=== PATIENT | female | born 1960 | race Caucasian/White ===

== ENCOUNTER → 2017-01-20 | Outpatient (CLI) | payer OTHER ==
[~2017-01-20] MED LIST: /ADVA50050; /ADVA50050 IN; /CELE20CA; /CELE20CA OR; /ROPI1TA OR; /TIOT18INH; /TIOT18INH INH; /ZOLP6ER; /ZOLP6ER OR; ACET65TA; ADVAIR; ADVAIR INH; ALBU17IN2; ALBUTEROL INH; AMOX500C OR; ASPI81TA83 OR; BENZ1TAB; BIOTINE OR; BUDE150T; BUDEPRION; BUSP10TA2 OR; CALC600T10; CALCTAB22 OR; CLAR5CHW; COLA100C2; COLA100C2 OR; DAILTAB OR; ESTR0.5T; ESTR1TAB OR; ESTR5TDPCH; FERR325T OR; FISH1000 OR; FLEXERIL OR; GLUC1000; HYZAAR OR; IBUP800T; INSULANT; INSULANT SC; KAPIDEX; KAPIDEX OR; LASI40TA OR; LOPR50TA; LORATADINE OR; LYRI300C OR; MAGN250T OR; MAXA10TA17 OR; MAXA5TAB; METO25TA2; METO25TA2 OR; NICO7DIS4 TD; NOVOLOG INSULIN SC; NOVOLOG100 MG/ML; PERC5TAB8; PREG50CA; SIMV40TA2 OR; SKEL800T5 OR; TOPI50TA OR; TRAM50TA2; VICO5TAB OR; VIST25CA OR; VIT D 2000 OR; VITA100T OR; VITAMIN D50000 UNT; WELL100T OR; ZOCO40TA; [UNRECOGNIZED DRUG - OTHER]; [UNRECOGNIZED DRUG - OTHER] PO; cinnamon PO; ducolax; hyzaar; multivitamin; pennsaid TD; pennsaid TOP; savella OR; savella PO
[2017-01-20 08:35] LABS: MEAN CORPUSCULAR HEMOGLOBIN 29.7 pg (27.0-33.0); MEAN CORPUSCULAR HGB CONC 33.3 g/dl (32.0-36.5); MEAN CORPUSCULAR VOLUME 89.1 fl (80.0-96.0); RED CELL DISTRIBUTION WIDTH 12.6 % (11.5-14.5); WHITE BLOOD COUNT 5.8 K/mm3 (4.0-10.0)
[2017-01-20 09:01] LABS: ALBUMIN 3.3 GM/DL (3.2-5.2); ALBUMIN/GLOBULIN RATIO 0.87 (1.00-1.93); BILIRUBIN,TOTAL 0.3 MG/DL (0.2-1.0); CALCIUM LEVEL 8.8 MG/DL (8.5-10.1); CREATININE FOR GFR 1.38 MG/DL (0.55-1.02); POTASSIUM SERUM 4.3 MEQ/L (3.5-5.1); TOTAL PROTEIN 7.1 GM/DL (6.4-8.2)
== END ==
LOC: M LAB 07:48
PROVIDERS: ATTEND Registered Nurse Community Health
DX: Z86.73 Personal history of transient ischemic attack (TIA), and cerebral infarction without residual deficits (principal); E11.8 Type 2 diabetes mellitus with unspecified complications; R26.9 Unspecified abnormalities of gait and mobility; Z79.4 Long term (current) use of insulin; M79.7 Fibromyalgia

== ENCOUNTER → 2017-11-01 | Outpatient (CLI) | payer OTHER ==
[2017-11-01 07:56] LABS: BASO # 0.1 10^3/uL (0.0-0.2); BASO % 1.1 % (0.0-1.0); EOS # 0.2 10^3/uL (0.0-0.50); EOS % 3.7 % (0.0-3.0); HEMATOCRIT 46.9 % (36.0-47.0); HEMOGLOBIN 15.9 g/dl (12.0-15.5); IMMATURE GRANULOCYTE % 0.5 % (0-3.0); LYMPH # 1.9 10^3/uL (1.5-4.5); LYMPH % 29.7 % (24.0-44.0); MEAN CORPUSCULAR HGB CONC 33.9 g/dl (32.0-36.5); MEAN CORPUSCULAR VOLUME 85.6 fl (80.0-96.0); MONO # 0.5 10^3/uL (0.0-0.8); MONO % 7.5 % (0.0-5.0); NEUTROPHILS # 3.8 10^3/uL (1.8-7.7); NEUTROPHILS % 57.5 % (36.0-66.0); PLATELET COUNT, AUTOMATED 200 10^3/uL (150-450); RED BLOOD COUNT 5.48 10^6/uL (4.00-5.40); RED CELL DISTRIBUTION WIDTH 12.3 % (11.5-14.5); WHITE BLOOD COUNT 6.5 10^3/uL (4.0-10.0)
[2017-11-01 08:21] LABS: ALBUMIN 3.7 GM/DL (3.2-5.2); ALBUMIN/GLOBULIN RATIO 0.93 (1.00-1.93); ALKALINE PHOSPHATASE 97 U/L (45-117); ALT/SGPT 131 U/L (12-78); ANION GAP 11 MEQ/L (8-16); AST/SGOT 77 U/L (7-37); BILIRUBIN,TOTAL 0.3 MG/DL (0.2-1.0); BLOOD UREA NITROGEN 29 MG/DL (7-18); CARBON DIOXIDE LEVEL 22 MEQ/L (21-32); CHLORIDE LEVEL 105 MEQ/L (98-107); CHOLESTEROL LEVEL 227 MG/DL (<200); CREATININE FOR GFR 1.46 MG/DL (0.55-1.30); GLOMERULAR FILTRATION RATE 39.3 (>51); HDL CHOLESTEROL 51 MG/DL (>40); LDL CHOLESTEROL 153.2 MG/DL (<100); NON-HDL-C 176 MG/DL; POTASSIUM SERUM 4.7 MEQ/L (3.5-5.1); SODIUM LEVEL 138 MEQ/L (136-145); TOTAL PROTEIN 7.7 GM/DL (6.4-8.2); TRIGLYCERIDES LEVEL 114 MG/DL (<150)
[2017-11-01 08:34] LABS: GLUCOSE, FASTING 442 MG/DL (70-100)
[2017-11-01 09:41] LABS: ESTIMATED AVERAGE GLUCOSE 212 MG/DL (60-110)
== END ==
LOC: M LAB 07:24
DX: R60.0 Localized edema (principal); E11.9 Type 2 diabetes mellitus without complications; K59.01 Slow transit constipation
CPT/HCPCS: 74018

== ENCOUNTER 2018-01-22 14:54 | Emergency (ER) | payer OTHER ==
[2018-01-22 15:36] LABS: BASO % 0.4 % (0.0-1.0); EOS # 0.1 10^3/uL (0.0-0.50); EOS % 0.9 % (0.0-3.0); HEMATOCRIT 47.5 % (36.0-47.0); HEMOGLOBIN 15.7 g/dl (12.0-15.5); IMMATURE GRANULOCYTE % 0.3 % (0-3.0); LYMPH # 2.1 10^3/uL (1.5-4.5); LYMPH % 19.3 % (24.0-44.0); MEAN CORPUSCULAR HEMOGLOBIN 28.5 pg (27.0-33.0); MEAN CORPUSCULAR HGB CONC 33.1 g/dl (32.0-36.5); MEAN CORPUSCULAR VOLUME 86.4 fl (80.0-96.0); MONO # 0.8 10^3/uL (0.0-0.8); MONO % 7.7 % (0.0-5.0); NEUTROPHILS # 7.6 10^3/uL (1.8-7.7); NEUTROPHILS % 71.4 % (36.0-66.0); PLATELET COUNT, AUTOMATED 214 10^3/uL (150-450); RED CELL DISTRIBUTION WIDTH 12.3 % (11.5-14.5); WHITE BLOOD COUNT 10.7 10^3/uL (4.0-10.0)
[2018-01-22] MEDS ORDERED: GASTROGRAFIN SOLUTION 30ML (Q9963) As Ordered (15:48)
[2018-01-22] MEDS: GASTROGRAFIN SOLUTION 30ML (Q9963) PO ×2 (15:55→16:30)
[2018-01-22 15:56] LABS: ANION GAP 10 MEQ/L (8-16); BLOOD UREA NITROGEN 27 MG/DL (7-18); CARBON DIOXIDE LEVEL 24 MEQ/L (21-32); CHLORIDE LEVEL 109 MEQ/L (98-107); CREATININE FOR GFR 1.36 MG/DL (0.55-1.30); GLOMERULAR FILTRATION RATE 42.5 (>51); GLUCOSE, FASTING 307 MG/DL (70-100); SODIUM LEVEL 143 MEQ/L (136-145)
[2018-01-22] MEDS: metroNIDAZOLE (FLAGYL) 500 MG TAB PO (21:12)
[2018-01-22] MEDS: GABAPENTIN 300 MG CAP PO (21:12)
[2018-01-22] MEDS: NS 1,000 ML IV (21:15)
== END 2018-01-22 22:33 | disposition home or self-care (01) ==
LOC: M ED 14:54
DX: A04.72 Enterocolitis due to Clostridium difficile, not specified as recurrent (principal)
CPT/HCPCS: 76775

== ENCOUNTER 2018-07-05 10:46 | Inpatient (IN) | payer OTHER ==
[~2018-07-05] VITALS: Ht 172.7 cm; Wt 155.0 kg
[~2018-07-05 10:46] MED LIST changes: -ADME100I SC; -BASA100I SC; -COLA100C5 PO; -EXCETAB80 PO; -HYDR-3363 PO; -INSUH10VL SC; -LASI20TA3 PO; -LISI-542 PO; -ROPI2TAB PO; -TOPI50TA9 PO; -TOUJ1.2I SC; -VENTAER INH
[2018-07-05] MEDS ORDERED: ADME100I SC (10:58)
[2018-07-05 11:08] LABS: BASO # 0.1 10^3/uL (0.0-0.2); BASO % 0.7 % (0.0-1.0); EOS # 0.2 10^3/uL (0.0-0.50); EOS % 2.1 % (0.0-3.0); HEMATOCRIT 48.5 % (36.0-47.0); HEMOGLOBIN 16.2 g/dl (12.0-15.5); LYMPH # 2.6 10^3/uL (1.5-4.5); LYMPH % 33.4 % (24.0-44.0); MEAN CORPUSCULAR HEMOGLOBIN 28.6 pg (27.0-33.0); MEAN CORPUSCULAR HGB CONC 33.4 g/dl (32.0-36.5); MEAN CORPUSCULAR VOLUME 85.5 fl (80.0-96.0); MONO # 0.9 10^3/uL (0.0-0.8); MONO % 11.1 % (0.0-5.0); NEUTROPHILS % 52.4 % (36.0-66.0); PLATELET COUNT, AUTOMATED 225 10^3/uL (150-450); RED BLOOD COUNT 5.67 10^6/uL (4.00-5.40); WHITE BLOOD COUNT 7.6 10^3/uL (4.0-10.0)
[2018-07-05] MEDS ORDERED: NS 1,000 ML IV ONE (11:30)
[2018-07-05 11:49] LABS: BLOOD UREA NITROGEN 36 MG/DL (7-18); CALCIUM LEVEL 9.8 MG/DL (8.5-10.1); CARBON DIOXIDE LEVEL 22 MEQ/L (21-32); CHLORIDE LEVEL 107 MEQ/L (98-107); CPK CREATINE PHOSPHOKINASE 120 U/L (26-192); CREATININE FOR GFR 1.88 MG/DL (0.55-1.30); GLOMERULAR FILTRATION RATE 29.3 (>51); GLUCOSE, FASTING 214 MG/DL (70-100); MAGNESIUM LEVEL 2.3 MG/DL (1.8-2.4); MB/CK RELATIVE INDEX 1.67 (< OR =4); POTASSIUM SERUM 4.5 MEQ/L (3.5-5.1); SODIUM LEVEL 140 MEQ/L (136-145); TROPONIN I < 0.02 NG/ML (< 0.10)
[2018-07-05] MEDS ORDERED: DILUENT IV ONE (13:15)
[2018-07-05] MEDS ORDERED: cefTRIAXone SOD 2 GM in D5W MINI-BAG PLUS 50 ML IV ONE (13:15)
[2018-07-05] MEDS ORDERED: NS IV ONE (13:15)
[2018-07-05] MEDS ORDERED: ALBUTEROL 90 MCG/ACT 8GM HFA INHALER INH PRN (14:30)
[2018-07-05] MEDS ORDERED: LASI20TA3 PO (14:36)
[2018-07-05] MEDS ORDERED: TOPI50TA9 PO (14:36)
[2018-07-05] MEDS ORDERED: COLA100C5 PO (14:36)
[2018-07-05] MEDS ORDERED: VENTAER INH (14:36)
[2018-07-05] MEDS ORDERED: HYDR-3363 PO (14:36)
[2018-07-05] MEDS ORDERED: LISI-542 PO (14:36)
[2018-07-05] MEDS ORDERED: EXCETAB80 PO (14:36)
[2018-07-05] MEDS ORDERED: ROPI2TAB PO (14:36)
--- NOTE | 2018-07-05 14:59 | REP ---
CHEST, SINGLE VIEW: There is no evidence of acute infiltrate. No pleural effusion is seen. The heart is normal in size. The mediastinal silhouette is unremarkable. The visualized osseous structures are intact. IMPRESSION: No acute pulmonary disease. Electronically Signed by Killian Velazquez MD 07/05/2018 08:11 P
[2018-07-05] MEDS: CYCLOBENZAPRINE 10 MG TAB PO SCH ×2 (16:05→20:07)
[2018-07-05] MEDS: GABAPENTIN 300 MG CAP PO SCH ×2 (16:05→20:07)
--- NOTE | 2018-07-05 16:33 | REP ---
CT ABDOMEN AND PELVIS WITHOUT CONTRAST: CT abdomen and pelvis performed without oral or IV contrast. Sagittal and coronal reconstruction images are performed. Comparison made with several prior studies, the most recent of which is 01/22/2018. Visualized lung bases are clear. The liver, gallbladder, spleen, adrenals and pancreas are grossly unremarkable. Patient has had a prior right nephrectomy with metallic clips in the right renal fossa. No mass is seen in that region. The left kidney demonstrates a cyst measuring 1.9 cm in diameter laterally. There is no left renal or ureteral calculus and no hydroureteronephrosis. No bladder calculus is seen. Urinary bladder is not well distended and not optimally evaluated. There is mild to moderate atherosclerotic calcification of the abdominal aorta without aneurysm. There is no adenopathy. There is no free air or free fluid. No bowel wall thickening is seen. There is no evidence of appendicitis. There is a small umbilical hernia containing fat. No pelvic mass is seen. The patient appears to have had a hysterectomy. There are mild degenerative changes of the spine. IMPRESSION: Patient is status post right nephrectomy. No left renal, ureteral or bladder calculus and no evidence of left hydroureteronephrosis. Left renal cyst noted. Small umbilical hernia contains fat. No evidence of appendicitis, free air or free fluid. Electronically Signed by Killian Velazquez MD 07/05/2018 08:17 P
--- NOTE | 2018-07-05 17:15 | ECGEPIP ---
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
--- NOTE | 2018-07-05 17:49 | HPE ---
DATE OF ADMISSION: 07/05/2018 A 58-year-old female with past medical history of renal cell carcinoma, status post right nephrectomy, history of hepatitis C, diabetes, hypertension, hyperlipidemia, morbid obesity, irritable bowel syndrome, chronic obstructive pulmonary disease (COPD), who presents to the emergency room from Dr. Kelley's office after a followup visit for hypertension and dizziness. The patient apparently was explaining to Dr. Kelley that she has been feeling dizzy for quite some time and in the last few days, she has been having similar symptoms to the urinary tract infection (UTI) she had back in this past May 2018 and was treated successfully. Her symptoms included dysuria and urgency. She has no nausea or vomiting. She has been eating well and drinking fluids properly. It has not affected her appetite. No subjective feeling of fever, aches or chills. Upon taking her vital signs in the office, she was found to be hypotensive, systolic in the 80s, so she was brought to the emergency room (ER) for evaluation. In the ER, she was confirmed to be systolic in the 80s, given IV bolus and started on fluids and she has received her third bag of IV fluids and now her blood pressure is systolic 100. She does not have any complaints at this time of any dizziness, chest pain, shortness of breath or palpitations, though she was profoundly orthostatic upon arrival to the ER. She was also given 2 grams of Rocephin IV for a positive urinalysis done in Dr. Kelley's office and a regular urinalysis (UA) has been sent out for culture and sensitivity as well. She will be admitted for further management. PAST MEDICAL HISTORY: 1. Hypertension. 2. Diabetes. 3. Hyperlipidemia. 4. Morbid obesity. 5. Hepatitis C. 6. Irritable bowel syndrome. 7. Win-nrmyob-lhpxvlkeu chronic obstructive pulmonary disease (COPD). 8. Diabetic neuropathy. ALLERGIES: She has drug allergies to MACROLIDES. She does not have any drug allergies to penicillin or penicillin cross reactors even though it is documented. FAMILY HISTORY: Noncontributory. SOCIAL HISTORY: The patient denies tobacco, alcohol or illicit drugs. MEDICATIONS: She takes at home are as follows: - Fioricet one tablet orally twice daily as needed - Admelog 40 units subcutaneous Wednesdays and Mondays - Ventolin two puffs inhaled four times a day as needed - atorvastatin 40 mg orally daily - cyclobenzaprine 10 mg orally three times a day - Colace 100 mg orally twice daily - Lasix 20 mg orally daily - gabapentin 300 mg orally three times a day - hydroxyzine 75 mg orally at bedtime - lisinopril 5 mg orally daily - loratadine 10 mg orally daily - omeprazole 40 mg orally daily - ropinirole 2 mg orally at bedtime - topiramate 50 mg orally twice daily REVIEW OF SYSTEMS: Negative for all 10 major systems except for what is mentioned in the history of present illness (HPI). VITAL SIGNS: Blood pressure is 82/44, heart rate is 96 and regular, respiratory rate is 16, temperature is 97.3, oxygen saturation is 95% on room air. Head is normocephalic, atraumatic. NECK: Supple with no jugular venous distention (JVD). LUNGS: Clear to auscultation. S1, S2 audible. No murmurs appreciated. ABDOMEN: Soft. Positive bowel sounds. No pedal edema. SKIN: Intact. NEUROLOGIC: The patient awake, alert, and oriented times three. LABORATORY DATA: WBC 7.6, hemoglobin 16.2, hematocrit is 48.5, platelets are 225,000. Sodium 140, potassium 4.5, chloride 107, CO2 22, anion gap is 11, BUN 36, creatinine 1.88, baseline is 1.3, fasting glucose is 214, lactic acid is 2.8, troponin is less than 0.02, TSH 1.3, magnesium is 2.3, CK is 120. IMPRESSION: 1. Orthostatic hypotension. 2. Acute kidney injury (KENYA). 3. Urinary tract infection (UTI). PLAN: The patient will be admitted to medical/surgical floor. We will continue aggressive and judicious IV fluids. She clearly is behind and will also follow the final urine culture and sensitivity. Continue IV Rocephin 1 gram daily. Her acute kidney injury (KENYA) is likely secondary to prerenal azotemia. We will monitor blood urea nitrogen (BUN) and creatinine trends in the morning. For now due to her KENYA, I am going to hold her lisinopril and her Lasix and we can surely resume in the morning or the day after once her KENYA has resolved. We will continue her care in the medical/surgical floor.
[2018-07-05] MEDS: NS 1,000 ML IV SCH ×2 (20:00→21:48)
[2018-07-05] MEDS ORDERED: INSUH10VL SC (20:04)
[2018-07-05] MEDS: hydrOXYzine 25 MG TAB PO SCH (20:08)
[2018-07-05] MEDS: DOCUSATE SODIUM 100 MG CAP PO SCH (20:08)
[2018-07-05] MEDS: TOPIRAMATE (TopAMAX) 25 MG TAB PO SCH (20:08)
[2018-07-05] MEDS ORDERED: TOUJ1.2I SC (20:27)
[2018-07-05] MEDS ORDERED: GLUCOSE 4 GM CHEW TABLET PO PRN (20:45)
[2018-07-05] MEDS ORDERED: DEXTROSE 50% 50 ML SYRINGE IV PRN (20:45)
[2018-07-05] MEDS ORDERED: GLUCAGON FOR INJ 1 MG VIAL (J1610) SC PRN (20:45)
[2018-07-05] MEDS ORDERED: HumaLOG INSULIN (NovoLOG) PER UNIT SC SCH (21:00)
[2018-07-05] MEDS: LEVEMIR (INSULIN DETEMIR) 1 UNITS/0.01ML SC SCH (21:03)
[2018-07-05] MEDS: rOPINIRole 1MG TAB PO SCH (22:05)
[2018-07-06] MEDS ORDERED: ACETAMINOPHEN TAB 650MG DOSE (2X325MG) GT PRN (01:15)
[2018-07-06] MEDS ORDERED: traMADol 50 MG TAB PO ONE (05:15)
[2018-07-06] MEDS: NS 1,000 ML IV SCH ×2 (05:47→13:40)
[2018-07-06 05:53] LABS: BASO % 0.5 % (0.0-1.0); EOS # 0.3 10^3/uL (0.0-0.50); EOS % 4.8 % (0.0-3.0); HEMATOCRIT 40.8 % (36.0-47.0); LYMPH # 2.4 10^3/uL (1.5-4.5); LYMPH % 39.2 % (24.0-44.0); MEAN CORPUSCULAR HEMOGLOBIN 28.5 pg (27.0-33.0); MEAN CORPUSCULAR HGB CONC 32.6 g/dl (32.0-36.5); MEAN CORPUSCULAR VOLUME 87.4 fl (80.0-96.0); MONO # 0.6 10^3/uL (0.0-0.8); MONO % 9.5 % (0.0-5.0); NEUTROPHILS # 2.7 10^3/uL (1.8-7.7); NEUTROPHILS % 45.7 % (36.0-66.0); PLATELET COUNT, AUTOMATED 165 10^3/uL (150-450); RED BLOOD COUNT 4.67 10^6/uL (4.00-5.40)
[2018-07-06 05:55] LABS: HEMOGLOBIN 13.3 g/dl (12.0-15.5)
[2018-07-06 06:19] LABS: CALCIUM LEVEL 7.6 MG/DL (8.5-10.1); CREATININE FOR GFR 1.51 MG/DL (0.55-1.30); GLOMERULAR FILTRATION RATE 37.7 (>51); POTASSIUM SERUM 4.2 MEQ/L (3.5-5.1)
[2018-07-06] MEDS: LEVEMIR (INSULIN DETEMIR) 1 UNITS/0.01ML SC SCH (08:59)
[2018-07-06] MEDS: HumaLOG INSULIN (NovoLOG) PER UNIT SC SCH ×3 (08:59→18:16)
[2018-07-06] MEDS: OMEPRAZOLE 20 MG CAP PO SCH (09:00)
[2018-07-06] MEDS: CYCLOBENZAPRINE 10 MG TAB PO SCH ×3 (09:00→22:04)
[2018-07-06] MEDS: ATORVASTATIN 20 MG TAB PO SCH (09:01)
[2018-07-06] MEDS: TOPIRAMATE (TopAMAX) 25 MG TAB PO SCH ×2 (09:01→22:05)
[2018-07-06] MEDS: GABAPENTIN 300 MG CAP PO SCH ×3 (09:02→22:05)
[2018-07-06] MEDS: DOCUSATE SODIUM 100 MG CAP PO SCH ×2 (09:02→22:04)
[2018-07-06] MEDS: LORATADINE 10 MG TAB PO SCH (09:03)
[2018-07-06] MEDS ORDERED: dexameTHASONE 20 MG/5 ML VIAL (J1100) IV ONE (12:15)
[2018-07-06] MEDS ORDERED: diphenhydrAMINE INJ 50MG/ML VIAL (J1200) IV ONE (12:15)
[2018-07-06] MEDS ORDERED: ACETAMINOPHEN 500 MG TAB PO ONE (12:15)
[2018-07-06] MEDS ORDERED: METOCLOPRAMIDE INJ 10MG/2ML VIAL (J2765) IV ONE (12:15)
[2018-07-06] MEDS ORDERED: cefTRIAXone SOD 1 GM in D5W MINI-BAG PLUS 50 ML IV SCH (14:00)
[2018-07-06] MEDS ORDERED: EXCEDRIN MIGRAINE TABLET PO PRN (14:30)
[2018-07-06] MEDS ORDERED: DEXTROSE 50% 50 ML SYRINGE IV PRN (20:15)
[2018-07-06] MEDS ORDERED: GLUCAGON FOR INJ 1 MG VIAL (J1610) SC PRN (20:15)
[2018-07-06] MEDS ORDERED: GLUCOSE 4 GM CHEW TABLET PO PRN (20:15)
[2018-07-06 21:00] VITALS: BP 182/86
[2018-07-06] MEDS ORDERED: LEVEMIR (INSULIN DETEMIR) 1 UNITS/0.01ML SC SCH (21:00)
[2018-07-06] MEDS ORDERED: METOPROLOL TART 25 MG TABLET PO ONE (21:45)
[2018-07-06 22:05] VITALS: BP 182/86
[2018-07-06] MEDS: hydrOXYzine 25 MG TAB PO SCH (22:05)
[2018-07-06] MEDS: rOPINIRole 1MG TAB PO SCH (22:05)
[2018-07-06 23:20] VITALS: BP 146/60
[2018-07-07] MEDS: HumaLOG INSULIN (NovoLOG) PER UNIT SC SCH ×5 (00:29→12:00)
[2018-07-07 06:00] VITALS: BP 139/65
[2018-07-07] MEDS: GABAPENTIN 300 MG CAP PO SCH (08:45)
[2018-07-07] MEDS: OMEPRAZOLE 20 MG CAP PO SCH (08:45)
[2018-07-07] MEDS: ATORVASTATIN 20 MG TAB PO SCH (08:45)
[2018-07-07] MEDS: TOPIRAMATE (TopAMAX) 25 MG TAB PO SCH (08:45)
[2018-07-07] MEDS: DOCUSATE SODIUM 100 MG CAP PO SCH (08:45)
[2018-07-07] MEDS: LORATADINE 10 MG TAB PO SCH (08:45)
[2018-07-07] MEDS: CYCLOBENZAPRINE 10 MG TAB PO SCH (08:45)
[2018-07-07] MEDS ORDERED: LEVEMIR (INSULIN DETEMIR) 1 UNITS/0.01ML SC SCH (09:00)
[2018-07-07] MEDS ORDERED: LEVEMIR (INSULIN DETEMIR) 1 UNITS/0.01ML SC ONE (10:45)
[2018-07-07] MEDS ORDERED: BASA100I SC (12:15)
--- NOTE | 2018-07-07 13:49 | IPNPDOC ---
Text Note Date of Service The patient was seen on 07/06/18. NOTE SUBJECTIVE: Feels better this am . Still a little dizzy and light headed but Bp has improved. Complains of headache since last night. Does have history of migraines. VITAL SIGNS: As below. GENERAL: morbidly obese, lying comfortably in bed in no acute distress HEENT: Head is normocephalic, atraumatic. NECK: Supple with no jugular venous distention (JVD). LUNGS: Clear to auscultation. Distant breath sounds. CVS: S1, S2 audible. No murmurs appreciated. No rub or gallop ABDOMEN: Soft. Positive bowel sounds. Obese EXTREMITIES: No pedal edema. SKIN: Intact. LABS and RADIOLOGY: Reviewed ASSESSMENT and PLAN: A 58-year-old female with past medical history of renal cell carcinoma, status post right nephrectomy, CKD stage 3, history of hepatitis C, Migraine, diabetes, hypertension, hyperlipidemia, morbid obesity, MED, Fatty liver, Periodic limb movement disorder, irritable bowel syndrome, chronic obstructive pulmonary disease (COPD), who presents to the emergency room from Dr. Kelley's office after a followup visit for hypotension and dizziness. The patient apparently was explaining to Dr. Kelley that she has been feeling dizzy for quite some time and in the last few days, she has been having similar symptoms to the urinary tract infection (UTI) she had back in this past May 2018 and was treated successfully with 10 days of Levofloxacin. Upon taking her vital signs in the office, she was found to be hypotensive, systolic in the 80s, so she was brought to the emergency room (ER) for evaluation. In the ER, she was confirmed to be systolic in the 80s, given IV bolus . She was profoundly orthostatic upon arrival to the ER. She was also given 2 grams of Rocephin IV for a positive urinalysis done in Dr. Kelley's office and a regular urinalysis (UA) has been sent out for culture and sensitivity as well. She will be admitted for further management. Hypotension Due to dehydration from osmotic diuresis as her sugars have been running in 400 to 500 in the past month as she had ran out of her long acting insulin. She said she was always thirsty and drinking fluids. being on diuretics and the increased output made her dehydrated. hold all antihypertensives and diuretics. responded to IVF. Migraine attack will give reglan, benadryl, tylenol and dexamethasone . continue topiramate continue exedrin migraine bid. Possible UTI UA few WBCs await final culture results continue ceftriaxone for now Diabetes with diabetic neuropathy continue levemir and lispro CKD stage 3 creatinine at baseline continue to monitor Morbid obesity with MED may use home CPAP Hyperlipidemia continue statin Restless leg syndrome continue home med COPD No issues. Continue home meds H/o renal cell cancer, s/p right nephrectomy Hepatitis C no issues at present. DVT prophylaxis has been ordered. VS,Fishbone, I+O VS, Fishbone, I+O Laboratory Tests 07/06/18 05:44 Red Blood Count 4.67, Mean Corpuscular Volume 87.4, Mean Corpuscular Hemoglobin 28.5, Mean Corpuscular Hemoglobin Concent 32.6, Red Cell Distribution Width 12.5, Neutrophils (%) (Auto) 45.7, Lymphocytes (%) (Auto) 39.2, Monocytes (%) (Auto) 9.5 H, Eosinophils (%) (Auto) 4.8 H, Basophils (%) (Auto) 0.5, Neutrophils # (Auto) 2.7, Lymphocytes # (Auto) 2.4, Monocytes # (Auto) 0.6, Eosinophils # (Auto) 0.3, Basophils # (Auto) 0.0, Calcium Level 7.6 #L Vital Signs Date Time Temp Pulse Resp B/P (MAP) Pulse Ox O2 Delivery O2 Flow Rate FiO2 07/06/18 13:30 79 18 129/62 (84) 95 Room Air 07/06/18 09:06 96.0 I&O- Last 24 Hours up to 6 AM 07/06/18 05:59 Intake Total 4050 ml Output Total 2725 ml Balance 1325 ml LORETTA DAWN MD Jul 06, 2018 14:25
--- NOTE | 2018-07-07 23:01 | DS.PDOC ---
Discharge Summary General Date of Admission Jul 05, 2018 at 13:48 Date of Discharge 07/07/18 Attending Physician: LORETTA DAWN MD Discharge Summary PROCEDURES PERFORMED DURING STAY: [None]. DISCHARGE DIAGNOSES: Hypotension due to dehydration from high sugars and osmotic diuresis Acute migraine attack No UTI Morbid obesity MED Obesity hypoventilation COPD Diabetes CKD3 Right nephrectomy for renal cell cancer Hepatitis C Hyperlipidemia Restless leg syndrome. COMPLICATIONS/CHIEF COMPLAINT: Orthostatic Hypotension, Uti. HISTORY OF PRESENT ILLNESS:See History and Physical HOSPITAL COURSE: A 58-year-old female with past medical history of renal cell carcinoma, status post right nephrectomy, CKD stage 3, history of hepatitis C, Migraine, diabetes, hypertension, hyperlipidemia, morbid obesity, MED, Fatty liver, Periodic limb movement disorder, irritable bowel syndrome, chronic obstructive pulmonary disease (COPD), who presents to the emergency room from Dr. Kelley's office after a followup visit for hypotension and dizziness. The patient apparently was explaining to Dr. Kelley that she has been feeling dizzy for quite some time and in the last few days, she has been having similar symptoms to the urinary tract infection (UTI) she had back in this past May 2018 and was treated successfully with 10 days of Levofloxacin. Upon taking her vital signs in the office, she was found to be hypotensive, systolic in the 80s, so she was brought to the emergency room (ER) for evaluation. In the ER, she was confirmed to be systolic in the 80s, given IV bolus . She was profoundly orthostatic upon arrival to the ER. She was also given 2 grams of Rocephin IV for a positive urinalysis done in Dr. Kelley's office and a regular urinalysis (UA) has been sent out for culture and sensitivity as well. She will be admitted for further management. Hypotension Due to dehydration from osmotic diuresis as her sugars have been running in 400 to 500 in the past month as she had ran out of her long acting insulin. She said she was always thirsty and drinking fluids. being on diuretics and the increased output made her dehydrated. responded to IVF. Given prescription for new long acting insulin. Migraine attack resolved continue topiramate continue exedrin migraine bid. No UTI Urine culture negative. Diabetes with diabetic neuropathy Continue Basaglar insulin and admelog. Tujeo insulin changed to basglar as it was not covered by insurance. CKD stage 3 creatinine at baseline continue to monitor continue lasix and lisinopril Morbid obesity with MED may use home CPAP Hyperlipidemia continue statin Restless leg syndrome continue home med COPD No issues. Continue home meds H/o renal cell cancer, s/p right nephrectomy Hepatitis C no issues at present. DVT prophylaxis has been ordered. DISCHARGE MEDICATIONS: Please see below. ALLERGIES: Please see below. PHYSICAL EXAMINATION ON DISCHARGE: VITAL SIGNS: Please see below. GENERAL: morbidly obese, lying comfortably in bed in no acute distress HEENT: Head is normocephalic, atraumatic. NECK: Supple with no jugular venous distention (JVD). LUNGS: Clear to auscultation. Distant breath sounds. CVS: S1, S2 audible. No murmurs appreciated. No rub or gallop ABDOMEN: Soft. Positive bowel sounds. Obese EXTREMITIES: No pedal edema. SKIN: Intact. LABORATORY DATA: Please see below. ACTIVITY: [As tolerated]. DIET: Consistent Carb DISPOSITION: 01 Home, Self-Care. DISCHARGE INSTRUCTIONS: Follow up with PMD in 1 week Follow up with Dr Kelley in 1 to [address] Watts. DISCHARGE CONDITION: [Stable]. TIME SPENT ON DISCHARGE: Greater than 30 minutes. Vital Signs/I&Os Vital Signs Date Time Temp Pulse Resp B/P (MAP) Pulse Ox O2 Delivery O2 Flow Rate FiO2 07/07/18 06:00 97.4 70 16 139/65 (89) 96 07/06/18 20:55 Room Air I&O- Last 24 Hours up to 6 AM 07/07/18 06:00 Intake Total 1380 ml Output Total 2825 ml Balance -1445 ml Laboratory Data Labs 24H Laboratory Tests 2 07/07/18 00:05: Bedside Glucose (Misc Panel) 458H 07/07/18 06:05: Bedside Glucose (Misc Panel) 314H 07/07/18 11:43: Bedside Glucose (Misc Panel) 74 FSBS Laboratory Tests Test 07/07/18 00:05 07/07/18 06:05 07/07/18 11:43 Range/Units Bedside Glucose (Misc Panel) 458 314 74 70-105 MG/DL Microbiology Microbiology 07/05/18 Blood Culture - Preliminary, Resulted No Growth after 48 hours. All Specime... 07/05/18 Blood Culture - Preliminary, Resulted No Growth after 48 hours. All Specime... 07/05/18 Urine Culture - Final, Complete Discharge Medications Scheduled (Admelog) 100 Unit/Ml Inj, 40 UNIT SC WM, (Reported) (Basaglar Kwikpen) 100 Unit/Ml Inj, 60 UNIT SC BID Atorvastatin Calcium (Atorvastatin Calcium) 40 Mg Tab, 40 MG PO DAILY, (Reported) Cyclobenzaprine HCl (Cyclobenzaprine HCl) 10 Mg Tab, 10 MG PO TID, (Reported) Docusate Sodium (Colace) 100 Mg Cap, 100 MG PO BID, (Reported) Furosemide (Lasix) 20 Mg Tab, 20 MG PO DAILY, (Reported) Gabapentin (Gabapentin) 300 Mg Cap, 300 MG PO TID, (Reported) Hydroxyzine HCl (Hydroxyzine HCl) 25 Mg Tab, 75 MG PO QHS, (Reported) Lisinopril (Lisinopril) 5 Mg Tab, 5 MG PO DAILY, (Reported) Loratadine (Loratadine) 10 Mg Tab, 10 MG PO DAILY, (Reported) Omeprazole (Omeprazole) 40 Mg Cap, 40 MG PO DAILY, (Reported) Ropinirole Hydrochloride (Ropinirole HCl) 2 Mg Tab, 2 MG PO QHS, (Reported) Topiramate (Topiramate) 50 Mg Tab, 50 MG PO BID, (Reported) Scheduled PRN Acetaminophen/Aspirin/Caffein (Excedrin Migraine 250-250-65 mg) 1 Tab Tab, 1 TAB PO BID PRN for MIGRAINE, (Reported) Albuterol Sulfate (Ventolin Hfa) 108 Mcg/Act Aer, 2 PUFF INH QID PRN for SHORTNESS OF BREATH, (Reported) Allergies Coded Allergies: Erythromycin (Verified Allergy, Unknown, 07/05/18) Penicillins (Verified Adverse Reaction, Intermediate, DIARRHEA, 07/05/18) Penicillins Cross Reactors (Verified Adverse Reaction, Intermediate, DIARRHEA, 07/05/18) LORETTA DAWN MD Jul 07, 2018 23:01
== END 2018-07-07 13:48 | disposition home or self-care (01) | DRG 422 ==
LOC: M ED 10:46 → EDBD 10:46 → M ED INP 13:48 → M MS4PR 07-06 21:02
PROVIDERS: ADMIT Internal Medicine; ATTEND Internal Medicine Nephrology
DX: E86.0 Dehydration (principal); E11.22 Type 2 diabetes mellitus with diabetic chronic kidney disease; E11.40 Type 2 diabetes mellitus with diabetic neuropathy, unspecified; E66.2 Morbid (severe) obesity with alveolar hypoventilation; J44.9 Chronic obstructive pulmonary disease, unspecified; Z68.43 Body mass index [BMI] 50.0-59.9, adult; N18.3 Chronic kidney disease, stage 3 (moderate); I12.9 Hypertensive chronic kidney disease with stage 1 through stage 4 chronic kidney disease, or unspecified chronic kidney disease; E78.5 Hyperlipidemia, unspecified; K58.9 Irritable bowel syndrome, unspecified; Z88.1 Allergy status to other antibiotic agents; Z79.899 Other long term (current) drug therapy; Z85.528 Personal history of other malignant neoplasm of kidney; I95.1 Orthostatic hypotension; G43.709 Chronic migraine without aura, not intractable, without status migrainosus; G25.81 Restless legs syndrome; Z90.5 Acquired absence of kidney

== ENCOUNTER → 2018-07-05 | Outpatient (REF) | payer OTHER ==
[~2018-07-05] MED LIST changes: +ADME100I SC; +ATOR40TA75 PO; +BASA100I SC; +COLA100C5 PO; +CYCL10TA PO; +EXCETAB80 PO; +FLAG500T PO; +GABA-843 PO; +HYDR-3363 PO; +INSUH10VL SC; +LASI20TA3 PO; +LISI-542; +LISI-542 PO; +LORA-243 PO; +MELA3TAB49 PO; +OMEP40CA2 PO; +ROPI2TAB PO; +TOPI50TA9 PO; +TOUJ1.2I; +TOUJ1.2I SC; +VENTAER INH
== END ==
LOC: M LAB REF 12:49
PROVIDERS: ATTEND Internal Medicine Nephrology
DX: N39.0 Urinary tract infection, site not specified (principal)

== ENCOUNTER → 2018-07-26 | Outpatient (REF) | payer OTHER ==
[~2018-07-26] MED LIST changes: +ADME100I SC; +BASA100I SC; +COLA100C5 PO; +EXCETAB80 PO; +HYDR-3363 PO; +INSUH10VL SC; +LASI20TA3 PO; +LISI-542 PO; +ROPI2TAB PO; +TOPI50TA9 PO; +TOUJ1.2I SC; +VENTAER INH
[2018-07-26 14:34] LABS: HEMOGLOBIN A1c 10.5 %
== END ==
LOC: M LAB REF 13:07
PROVIDERS: ATTEND Registered Nurse Community Health
DX: Z09 Encounter for follow-up examination after completed treatment for conditions other than malignant neoplasm (principal); R25.2 Cramp and spasm; N30.01 Acute cystitis with hematuria; E11.9 Type 2 diabetes mellitus without complications

== ENCOUNTER → 2019-03-05 | Outpatient (CLI) | payer OTHER ==
[~2019-03-05] MED LIST changes: -/ADVA50050; -/ADVA50050 IN; -/CELE20CA; -/CELE20CA OR; -/ROPI1TA OR; -/TIOT18INH; -/TIOT18INH INH; +ADVA1AER2; +ADVA1AER2 IN; +CELE1CAP4; +CELE1CAP4 OR; +ESTR0.059; -ESTR5TDPCH; -OMEP40CA2 PO; +OMEP40CA97 PO; +REQU1TAB16 OR; +SPIR1CAP; +SPIR1CAP INH
--- NOTE | 2019-03-06 06:00 | REP ---
Clinical: Bilateral shoulder pain . Technique: Internal rotation, external rotation, and Y view right and left shoulder . Findings: No acute fracture or dislocation. The acromioclavicular and glenohumeral joints are intact. No periarticular calcifications or significant overt degenerative changes are appreciated. Sub acromial space is normal. Surrounding soft tissues are unremarkable. Impression: Normal essentially age-appropriate bilateral shoulder radiographs. Electronically Signed by Clemente Gibbons MD 03/06/2019 05:51 A
== END ==
LOC: M RAD 09:40
PROVIDERS: ATTEND Registered Nurse Community Health
DX: M25.511 Pain in right shoulder (principal); M25.512 Pain in left shoulder

== ENCOUNTER → 2019-04-03 | Outpatient (CLI) | payer OTHER ==
--- NOTE | 2019-04-03 13:40 | REP ---
Two-view chest: 04/03/2019. Indication: Preoperative assessment. Comparison: 11/01/2013. Findings: The lungs are clear. There is no pleural effusion or pneumothorax. Cardiac silhouette is at the upper limits of normal in size. Impression: There is no acute cardiopulmonary process. Electronically Signed by Patrick Astudillo DO 04/03/2019 01:32 P
== END ==
LOC: M RAD 12:48
PROVIDERS: ATTEND Registered Nurse Community Health
DX: Z01.818 Encounter for other preprocedural examination (principal); E66.01 Morbid (severe) obesity due to excess calories; E78.2 Mixed hyperlipidemia; Z68.43 Body mass index [BMI] 50.0-59.9, adult

== ENCOUNTER → 2019-05-10 | Outpatient (CLI) | payer OTHER ==
[2019-05-10 11:06] LABS: HEMATOCRIT 45.2 % (36.0-47.0)
[2019-05-10 11:11] LABS: BASO % 0.5 % (0.0-1.0); EOS # 0.3 10^3/uL (0.0-0.5); EOS % 3.4 % (0.0-3.0); HEMATOCRIT 44.6 % (36.0-47.0); HEMOGLOBIN 14.1 g/dl (12.0-15.5); LYMPH # 2.6 10^3/uL (1.5-5.0); LYMPH % 31.3 % (24.0-44.0); MEAN CORPUSCULAR HEMOGLOBIN 28.4 pg (27.0-33.0); MEAN CORPUSCULAR HGB CONC 31.6 g/dl (32.0-36.5); MEAN CORPUSCULAR VOLUME 89.9 fl (80.0-96.0); MONO # 0.7 10^3/uL (0.0-0.8); MONO % 8.2 % (0.0-5.0); NEUTROPHILS # 4.6 10^3/uL (1.5-8.5); NEUTROPHILS % 56.4 % (36.0-66.0); PLATELET COUNT, AUTOMATED 247 10^3/uL (150-450); RED BLOOD COUNT 4.96 10^6/uL (4.00-5.40); WHITE BLOOD COUNT 8.2 10^3/uL (4.0-10.0)
[2019-05-10 11:46] LABS: ALBUMIN 3.4 GM/DL (3.2-5.2); BILIRUBIN,TOTAL 0.3 MG/DL (0.2-1.0); CREATININE FOR GFR 1.45 MG/DL (0.55-1.30); GLOMERULAR FILTRATION RATE 39.3 (>51); MAGNESIUM LEVEL 2.3 MG/DL (1.8-2.4); PERCENT SATURATION 20.3 % (13.2-45.0); PHOSPHORUS LEVEL 3.7 MG/DL (2.5-4.9); POTASSIUM SERUM 4.5 MEQ/L (3.5-5.1); TOTAL PROTEIN 7.1 GM/DL (6.4-8.2)
[2019-05-10 11:49] LABS: TOTAL 25(OH) VITAMIN D 42.8 NG/ML (30.0-100.0)
== END ==
LOC: M LAB 09:59
PROVIDERS: ATTEND Surgery
DX: K91.2 Postsurgical malabsorption, not elsewhere classified (principal); E55.9 Vitamin D deficiency, unspecified; Z86.39 Personal history of other endocrine, nutritional and metabolic disease; Z98.84 Bariatric surgery status

== ENCOUNTER → 2019-10-11 | Outpatient (REF) | payer OTHER ==
[~2019-10-11] MED LIST changes: +CYCL-707 PO; -CYCL10TA PO; +MAGN400C2 PO; +MULTCAP PO; -ROPI2TAB PO; +ROPI2TAB3 PO; +TRAZ-252 PO; +ULTR5TAB PO; +VITA500079 PO
== END ==
LOC: M LAB REF 16:43
PROVIDERS: ATTEND Nurse Practitioner Family
DX: N39.0 Urinary tract infection, site not specified (principal)

== ENCOUNTER → 2020-02-06 | Outpatient (REF) | payer OTHER | LOC: M LAB REF 16:52 | PROVIDERS: ATTEND Nurse Practitioner Family | DX: N39.0 Urinary tract infection, site not specified (principal) ==

== ENCOUNTER 2020-03-29 21:26 | Emergency (ER) | payer OTHER ==
[2020-03-29] MEDS ORDERED: NS 1,000 ML IV ONE (22:30)
--- NOTE | 2020-03-29 22:30 | REPVR ---
PROCEDURE INFORMATION: Exam: CT Head Without Contrast Exam date and time: 03/29/2020 10:00 PM Age: 60 years old Clinical indication: Injury or trauma; Fall; Blunt trauma (contusions or hematomas); Additional info: Fall with amnesia TECHNIQUE: Imaging protocol: Computed tomography of the head without contrast. Radiation optimization: All CT scans at this facility use at least one of these dose optimization techniques: automated exposure control; mA and/or kV adjustment per patient size (includes targeted exams where dose is matched to clinical indication); or iterative reconstruction. COMPARISON: No relevant prior studies available. FINDINGS: Brain: There is no evidence of intracranial bleed. There is asymmetric increased density along the right side of the cerebellum. This may be normal variation. To exclude any possibility of subtle lesion in this area recommend CT scan with contrast or MRI. Cerebral ventricles: Normal appearing ventricles. Bones/joints: There is no evidence of fracture. Paranasal sinuses: Clear paranasal sinuses. Mastoid air cells: Clear mastoid air cells. Soft tissues: Unremarkable. IMPRESSION: 1. No evidence of fracture. No evidence of bleed. 2. Subtle asymmetry at the right side of the cerebellum probably normal variation. To exclude any possibility of subtle abnormality recommend CT scan with contrast or MRI. Electronically signed by: Jose Bell On 03/29/2020 22:30:37 PM
--- NOTE | 2020-03-29 22:39 | REPVR ---
PROCEDURE INFORMATION: Exam: CT Cervical Spine Without Contrast Exam date and time: 03/29/2020 10:00 PM Age: 60 years old Clinical indication: Injury or trauma; Fall; Blunt trauma; Additional info: Fall with amnesia TECHNIQUE: Imaging protocol: Computed tomography images of the cervical spine without contrast. Radiation optimization: All CT scans at this facility use at least one of these dose optimization techniques: automated exposure control; mA and/or kV adjustment per patient size (includes targeted exams where dose is matched to clinical indication); or iterative reconstruction. COMPARISON: CT Neck with contrast 08/30/2013 9:35 AM FINDINGS: Vertebrae: The cervical vertebra and facet joints appear in alignment. There is no evidence of fracture. The dens appears intact in the lateral masses of C1 appear symmetric. There is a bone cyst in the midportion of the dens. Soft tissues: There is no evidence of soft tissue swelling. IMPRESSION: No evidence of fracture Electronically signed by: Jose Bell On 03/29/2020 22:39:06 PM
[2020-03-29 22:42] LABS: BASO # 0.1 10^3/uL (0.0-0.2); BASO % 0.8 % (0.0-1.0); EOS # 0.3 10^3/uL (0.0-0.5); EOS % 4.7 % (0.0-3.0); HEMATOCRIT 44.1 % (36.0-47.0); HEMOGLOBIN 14.4 g/dl (12.0-15.5); LYMPH # 2.9 10^3/uL (1.5-5.0); LYMPH % 45.1 % (24.0-44.0); MEAN CORPUSCULAR HEMOGLOBIN 29.3 pg (27.0-33.0); MEAN CORPUSCULAR HGB CONC 32.7 g/dl (32.0-36.5); MEAN CORPUSCULAR VOLUME 89.6 fl (80.0-96.0); MONO # 0.5 10^3/uL (0.0-0.8); MONO % 7.4 % (0.0-5.0); NEUTROPHILS # 2.6 10^3/uL (1.5-8.5); NEUTROPHILS % 41.7 % (36.0-66.0); PLATELET COUNT, AUTOMATED 226 10^3/uL (150-450); RED BLOOD COUNT 4.92 10^6/uL (4.00-5.40); WHITE BLOOD COUNT 6.3 10^3/uL (4.0-10.0)
[2020-03-29 23:05] LABS: INR 0.95; PROTHROMBIN TIME 12.9 SECONDS (12.5-14.3)
[2020-03-29 23:06] LABS: PARTIAL THROMBOPLASTIN TIME 26.5 SECONDS (24.2-38.5)
[2020-03-29 23:18] LABS: ACETAMINOPHEN LEVEL < 2.0 UG/ML (10.0-30.0); ALBUMIN 3.3 GM/DL (3.2-5.2); ALT/SGPT 14 U/L (12-78); BILIRUBIN,DIRECT 0.1 MG/DL (0.0-0.2); BILIRUBIN,TOTAL 0.2 MG/DL (0.2-1.0); BLOOD UREA NITROGEN 22 MG/DL (7-18); CALCIUM LEVEL 8.6 MG/DL (8.8-10.2); CARBON DIOXIDE LEVEL 20 MEQ/L (21-32); CHLORIDE LEVEL 109 MEQ/L (98-107); CPK CREATINE PHOSPHOKINASE 106 U/L (26-192); CREATININE FOR GFR 1.69 MG/DL (0.55-1.30); ETHYL ALCOHOL (ETHANOL) 0.212 % (0.000-0.010); GLOMERULAR FILTRATION RATE 32.9 (>45); GLUCOSE, FASTING 251 MG/DL (70-100); SALICYLATE LEVEL 4.9 MG/DL (5.0-30.0); SODIUM LEVEL 140 MEQ/L (136-145); TOTAL PROTEIN 6.6 GM/DL (6.4-8.2)
--- NOTE | 2020-03-30 05:46 | ECGEPIP ---
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
[2020-03-30 08:57] VITALS: BP 142/78
== END 2020-03-30 09:05 | disposition home or self-care (01) ==
LOC: M ED 21:26
DX: S09.90XA Unspecified injury of head, initial encounter (principal); F10.120 Alcohol abuse with intoxication, uncomplicated; E87.2 Acidosis; I10 Essential (primary) hypertension; W07.XXXA Fall from chair, initial encounter; Y92.511 Restaurant or cafe as the place of occurrence of the external cause; N17.9 Acute kidney failure, unspecified; I95.9 Hypotension, unspecified; E11.9 Type 2 diabetes mellitus without complications; K21.9 Gastro-esophageal reflux disease without esophagitis; F32.9 Major depressive disorder, single episode, unspecified; Z86.79 Personal history of other diseases of the circulatory system; B19.20 Unspecified viral hepatitis C without hepatic coma; Z87.891 Personal history of nicotine dependence; Z88.0 Allergy status to penicillin; Z88.1 Allergy status to other antibiotic agents; Z79.899 Other long term (current) drug therapy; Z79.4 Long term (current) use of insulin
CPT/HCPCS: 70450; 72125; 80048; 80076; 82550; 84443; 85025; 85610; 85730; 86850; 86900; 86901; 93005; 93041; 94760; 96360; 99285; G0480

== ENCOUNTER → 2021-10-15 | Outpatient (CLI) | payer OTHER ==
[~2021-10-15] MED LIST changes: +GABA-282 PO; -GABA-843 PO; -LISI-542; -LISI-542 PO; +LISI5TAB11; +LISI5TAB11 PO; +OMEP40CA4 PO; -OMEP40CA97 PO
== END ==
LOC: M RAD 07:00
PROVIDERS: ATTEND Podiatrist Foot & Ankle Surgery
DX: I73.9 Peripheral vascular disease, unspecified (principal)

== ENCOUNTER → 2022-02-09 | Outpatient (POV) | payer OTHER ==
[~2022-02-09] VITALS: Ht 172.7 cm; Wt 100.0 kg
[2022-02-09 07:44] VITALS: BP 143/94
== END ==
LOC: M IRPOV 07:17
PROVIDERS: ATTEND Radiology Diagnostic Radiology
DX: E11.40 Type 2 diabetes mellitus with diabetic neuropathy, unspecified (principal); E11.22 Type 2 diabetes mellitus with diabetic chronic kidney disease; F17.210 Nicotine dependence, cigarettes, uncomplicated; I12.9 Hypertensive chronic kidney disease with stage 1 through stage 4 chronic kidney disease, or unspecified chronic kidney disease; E78.5 Hyperlipidemia, unspecified; N18.9 Chronic kidney disease, unspecified; J44.9 Chronic obstructive pulmonary disease, unspecified; M79.604 Pain in right leg; M79.605 Pain in left leg; E66.9 Obesity, unspecified; Z79.4 Long term (current) use of insulin; Z79.899 Other long term (current) drug therapy; Z85.528 Personal history of other malignant neoplasm of kidney; Z88.0 Allergy status to penicillin; Z88.1 Allergy status to other antibiotic agents; Z90.710 Acquired absence of both cervix and uterus; Z98.84 Bariatric surgery status

== ENCOUNTER → 2022-02-09 | Outpatient (CLI) | payer OTHER ==
[2022-02-09 11:30] LABS: ALBUMIN 3.5 GM/DL (3.2-5.2); BILIRUBIN,TOTAL 0.3 MG/DL (0.2-1.0); CALCIUM LEVEL 9.2 MG/DL (8.8-10.2); CREATININE FOR GFR 1.17 MG/DL (0.55-1.30); GLOMERULAR FILTRATION RATE 49.9 (>45); POTASSIUM SERUM 4.5 MEQ/L (3.5-5.1); TOTAL PROTEIN 7.5 GM/DL (6.4-8.2)
== END ==
LOC: M LAB 08:58
PROVIDERS: ATTEND Internal Medicine Addiction Medicine
DX: E11.9 Type 2 diabetes mellitus without complications (principal)